=== PATIENT | male | born 2000 | race Caucasian/White ===

== ENCOUNTER → 2020-07-08 08:28 | Outpatient (BNVA) | payer MEDICAID, SELFPAY | PROVIDERS: PCP Electrodiagnostic Medicine; Referring Provider Electrodiagnostic Medicine; Visit Provider Nurse Practitioner Family | DX: R35.0 Frequency of micturition (principal) | CPT/HCPCS: 81001 ==

== ENCOUNTER → 2020-07-30 09:14 | Outpatient (BNVA) | payer MEDICAID, SELFPAY | PROVIDERS: PCP Electrodiagnostic Medicine; Visit Provider Urology | DX: R35.0 Frequency of micturition (principal); R39.15 Urgency of urination; N41.1 Chronic prostatitis | CPT/HCPCS: 81001 ==

== ENCOUNTER 2020-09-10 07:30 | Outpatient (CLI) | payer MEDICAID, SELFPAY ==
--- NOTE | 2020-09-10 07:15 | US_ITS ---
WS: [id number] RENAL ULTRASOUND URINARY BLADDER ULTRASOUND HISTORY: urinary frequency COMPARISON: None available. TECHNIQUE: 2-D and color Doppler imaging of the kidney submitted. Right kidney: 12.7 cm x 5.7 cm x 5.5 cm. Normal echogenicity with no hydronephrosis or mass. Left kidney: 12.7 cm x 4.3 cm x 5.4 cm. Normal echogenicity with no hydronephrosis or mass. Aorta: Normal. Urinary Bladder: Normal distention. No significant post void residual. Good emptying of the urinary bladder.
--- NOTE | 2020-09-10 08:00 | XR_ITS ---
WS: [id number] Exam: XR KUB [id number] Date/Time of Exam: 09/10/2020 8:00 AM Reason For Exam: URINARY FREQUENCY No bowel obstruction or free air. Visualized organ margins are intact. Nonspecific left pelvic calcif ication measuring about 4 mm. This could be a phlebolith however a urinary tract stone could have sim ilar appearance. Moderate amount of stool in right colon. Bony elements are intact. Visualized organ margins appear normal. XR/XR KUB [id number] IMPRESSION: 1. Nonspecific 4 mm left pelvic calcification noted. This could be a urinary tr act stone or phlebolith. No acute process identified.
--- NOTE | 2020-09-10 15:03 | US_ITS ---
WS: [id number] RENAL ULTRASOUND URINARY BLADDER ULTRASOUND HISTORY: urinary frequency COMPARISON: None available. TECHNIQUE: 2-D and color Doppler imaging of the kidney submitted. Right kidney: 12.7 cm x 5.7 cm x 5.5 cm. Normal echogenicity with no hydronephrosis or mass. Left kidney: 12.7 cm x 4.3 cm x 5.4 cm. Normal echogenicity with no hydronephrosis or mass. Aorta: Normal. Urinary Bladder: Normal distention. No significant post void residual. Good emptying of the urinary bladder. US/US renal BI with PV bladder IMPRESSION: Normal renal ultrasound. No post void residual.
== END 2020-09-10 07:31 | disposition home or self-care (01) ==
LOC: RAD 07:32
PROVIDERS: PCP Electrodiagnostic Medicine; Visit Provider Urology
DX: R35.0 Frequency of micturition (principal); N20.9 Urinary calculus, unspecified
CPT/HCPCS: 74018; 76770; 76857; 81003

== ENCOUNTER → 2020-11-13 08:18 | Outpatient (BNVA) | payer MEDICAID, SELFPAY | PROVIDERS: PCP Electrodiagnostic Medicine; Visit Provider Urology | DX: R35.0 Frequency of micturition (principal) | CPT/HCPCS: 81003 ==

== ENCOUNTER 2020-11-27 13:53 | Outpatient (CLI) | payer MEDICAID, SELFPAY ==
--- NOTE | 2020-11-27 13:15 | XR_ITS ---
WS: [id number] KUB, 11/27/2020 Clinical Data: URINARY FREQUENCY Comparison: KUB, 09/10/2020. Findings: No abnormal intraabdominal masses or calcifications are seen. There is no dilatated small bowel or ev idence of obstruction. The left true pelvic calcification again seen. There is fecal material throughout the ascending and t ransverse colon. XR/XR KUB [id number] Impression: No change in calcification in left true pelvis.
--- NOTE | 2020-11-27 13:30 | US_ITS ---
WS: [id number] RENAL ULTRASOUND URINARY BLADDER ULTRASOUND HISTORY: URINARY FREQUENCY COMPARISON: 09/10/2020 TECHNIQUE: 2-D and color Doppler imaging of the kidney submitted. Right kidney: 12.7 cm x 5.2 cm x 4.8 cm. Normal echogenicity with no hydronephrosis or mass. Left kidney: 13.2 cm x 4.8 cm x 4.9 cm. Normal echogenicity with no hydronephrosis or mass. Aorta: Normal. Urinary Bladder: [place] moderate distention of the bladder. Diffuse mild wall thickening is probably due to underdistention. Bladder volume is 61 mL. Postcontrast voiding there is no residual. US/US renal BI* [id number] IMPRESSION: Normal renal ultrasound. No post void residual.
== END 2020-11-27 13:54 | disposition home or self-care (01) ==
PROVIDERS: PCP Electrodiagnostic Medicine; Visit Provider Urology
DX: R35.0 Frequency of micturition (principal)
CPT/HCPCS: 74018; 76770; 81003

== ENCOUNTER → 2021-05-28 08:34 | Outpatient (BNVA) | payer MEDICAID, SELFPAY | PROVIDERS: PCP Electrodiagnostic Medicine; Visit Provider Urology | DX: R35.0 Frequency of micturition (principal); F84.0 Autistic disorder | CPT/HCPCS: 81003 ==

== ENCOUNTER → 2022-02-19 08:13 | Outpatient (BNVA) | payer MEDICAID, SELFPAY | PROVIDERS: PCP Electrodiagnostic Medicine; Visit Provider Urology | DX: R35.0 Frequency of micturition (principal) | CPT/HCPCS: 81003 ==

== ENCOUNTER → 2022-08-26 08:13 | Outpatient (BNVA) | payer MEDICAID, SELFPAY | PROVIDERS: PCP Electrodiagnostic Medicine; Visit Provider Nurse Practitioner Family | DX: R35.0 Frequency of micturition (principal); F84.0 Autistic disorder | CPT/HCPCS: 81003; 99213 ==

== ENCOUNTER 2023-10-11 09:28 | Emergency (ER) | payer MEDICAID, SELFPAY ==
[2023-10-11 09:36] VITALS: BP 137/81; PULSE 103; RESP 25; TEMP 36.5; O2SAT 100; BMI 33.5
--- NOTE | 2023-10-11 10:03 | ED_ITS ---
HPI - Abdominal Pain 2 General: Chief Complaint: Abdominal Pain Stated Complaint: abd pain, N/V, heacahce Time Seen by Provider: 10/11/23 09:35 Source: patient and family Mode of arrival: ambulatory Limitations: no limitations History of Present Illness: Patient is a 23-year-old autistic male here with his mother for concerns of abdominal pain and vomiting beginning around midnight last night. They have been around other people with who have been ill with similar symptoms. She states patient has not been able to keep anything down and was up all evening vomiting. He has not had any diarrhea. No fevers. MD elicited complaint: abdominal pain and other (vomiting) Pertinent past history: none Onset (ago): hour(s) Pain Consistency: intermittent Location: Diffuse Severity: mild Quality: cramping Radiation: none Migration to: no migration Exacerbating factors: eating Relieving factors: nothing Associated Symptoms: Reports nausea and vomiting; Denies change in bowel habits, chills, coffee ground emesis, diarrhea, dysuria, fever(s), heartburn and hematemesis Review of Systems 2 Const: Denies: fever(s), chills, body aches, fatigue or malaise Card: Denies: chest pain Resp: Denies: dyspnea GI: Reports: abdominal pain, nausea and vomiting; Denies: hematemesis, coffee ground emesis, dysphagia, heartburn, diarrhea or change in bowel habits : Denies: flank pain, difficulty urinating, dysuria, urinary frequency, urinary urgency or urinary hesitancy Musc: Denies: neck pain, back pain, extremity pain or joint pain Skin/Breast: Denies: rash Neuro: Denies: headache(s), numbness in extremities, weakness in extremities or sensory changes PFSH ED 2 PFSH: Medical History Autism Urinary frequency Family History Mother Diabetes Social History Smoking and tobacco/nicotine status: never used tobacco/nicotine Alcohol intake: never Substance/Drug Use: never Housing: House Marital status: Single Current occupational status: employed Physical Exam 2 Const: COMMON NORMALS: no acute distress, average body habitus, patient oriented x3, no limitations, healthy appearing, alert and well nourished Eye: COMMON NORMALS: no scleral icterus Resp: COMMON NORMALS: normal respiratory effort and clear to auscultation bilaterally AUSCULTATION: clear to auscultation bilaterally Cardio: COMMON NORMALS: regular rate and regular rhythm RATE: regular rate RHYTHM: regular rhythm GI: COMMON NORMALS: Normal to inspection, nondistended, normoactive bowel sounds present, Soft to palpation, non-tender, No hepatosplenomegaly present and no masses INSPECTION: Yes normal to inspection PALPATION: Yes Soft to palpation and Yes No hepatosplenomegaly present Extremity: GENERAL: Yes normal exam except as noted Neuro: COMMON NORMALS: patient oriented x3, moves all extremities, no focal motor deficits and no sensory deficits noted SENSORIUM/ORIENTATION: Yes alert Skin: COMMON NORMALS: no rashes or lesions noted GENERAL SKIN EXAM: no rashes or lesions noted Course 2 Vital Signs: Vital signs: Vital Signs Temperature 97.7 F 10/11/23 09:36 Pulse Rate 116 H 10/11/23 11:12 Respiratory Rate 18 10/11/23 11:12 Blood Pressure 169/99 10/11/23 11:12 Pulse Oximetry 100 10/11/23 11:12 Oxygen Delivery Me thod Room Air 10/11/23 11:12 MDM - Abdominal Pain Medical Decision Making Patient appears in no acute distress. He feels much better after Zofran. He was able to drink here without vomiting. Patient's labs overall are nonactionable. He has a minor white count most likely from vomiting all evening. Chemistry panel overall is fairly unremarkable. Glucose mildly elevated at 151. He has a normal gap and bicarb. UA is unremarkable. He was given a liter of fluids here. Abdomen is nonsurgical. Patient will be treated for a viral gastroenteritis. Return to ED precautions given. Medical Records I reviewed the patient's medical records. Lab Data I reviewed the patient's lab results. 10/11/23 10:24 10/11/23 10:24 Labs/Radiology: Laboratory Results WBC 13.83 10^3/uL (3.29-11.43) H 10/11/23 10:24 RBC 5.28 10^6/uL (3.85-5.65) 10/11/23 10:24 Hgb 16.00 g/dL (11.27-16.99) 10/11/23 10:24 Hct 45.9 % (37-53) 10/11/23 10:24 MCV 86.9 fl (82-101) 10/11/23 10:24 MCH 30.3 pg (27-33) 10/11/23 10:24 MCHC 34.9 g/dL (30-55) 10/11/23 10:24 RDW 11.9 % (12.1-15.1) L 10/11/23 10:24 Plt Count 263 10^3/cmm (157-399) 10/11/23 10:24 MPV 8.8 fL (7.4-10.4) 10/11/23 10:24 Neut % (Auto) 92.0 % 10/11/23 10:24 Lymph % (Auto) 2.8 % 10/11/23 10:24 Starr % (Auto) 4.6 % 10/11/23 10:24 Eos % (Auto) 0.0 % 10/11/23 10:24 Baso % (Auto) 0.3 % 10/11/23 10:24 Neut # (Auto) 12.72 10^3/uL (1.8-7.7) H 10/11/23 10:24 Lymph # (Auto) 0.4 10^3/uL (0.8-4.8) L 10/11/23 10:24 Starr # (Auto) 0.6 10^3/uL (0.2-0.9) 10/11/23 10:24 Eos # (Auto) 0.0 10^3/uL (0.0-0.8) 10/11/23 10:24 Baso # (Auto) 0.0 10^3/uL (0.0-0.1) 10/11/23 10:24 Nucleated RBC % (auto) 0 % 10/11/23 10:24 Nucleated RBCs # 0.0 /100WBC 10/11/23 10:24 Sodium 139 mmol/L (136-145) 10/11/23 10:24 Potassium 4.3 mmol/L (3.5-5.1) 10/11/23 10:24 Chloride 102 mmol/L (98-107) 10/11/23 10:24 Carbon Dioxide 24 mmol/L (22-29) 10/11/23 10:24 Anion Gap 17.3 (5-19) 10/11/23 10:24 BUN 15 mg/dL (6-20) 10/11/23 10:24 Creatinine 0.8 mg/dL (0.7-1.2) 10/11/23 10:24 GFR Calculation 118.8 mL/min (90-130) 10/11/23 10:24 Glucose 151 mg/dL (65-115) H 10/11/23 10:24 Calculated Osmolality 292 mOsm/kg (285-295) 10/11/23 10:24 Calcium 9.0 mg/dL (8.5-10.5) 10/11/23 10:24 Total Bilirubin 1.2 mg/dL (0.15-1.2) 10/11/23 10:24 AST 25 U/L (0-40) 10/11/23 10:24 ALT 60 U/L (0-41) H 10/11/23 10:24 Alkaline Phosphatase 57 U/L (40-130) 10/11/23 10:24 Total Protein 7.5 g/dL (6.6-8.7) 10/11/23 10:24 Albumin 4.6 g/dL (3.5-5.2) 10/11/23 10:24 Globulin 2.9 g/dL (1.3-4.6) 10/11/23 10:24 Lipase 14 U/L (13-60) 10/11/23 10:24 Urine Color Yellow (Yellow) 10/11/23 11:11 Urine Appearance Clear (CLEAR) 10/11/23 11:11 Urine pH 7 (5-7) 10/11/23 11:11 Ur Specific [place] 1.005 (1.005-1.030) 10/11/23 11:11 Urine Protein Neg (Negative) 10/11/23 11:11 Urine Glucose (UA) Norm (Normal) 10/11/23 11:11 Urine Ketones Negative (Negative) 10/11/23 11:11 Urine Blood Neg (Negative) 10/11/23 11:11 Urine Nitrate Negative (Negative) 10/11/23 11:11 Urine Bilirubin Neg (Negative) 10/11/23 11:11 Urine Urobilinogen Norm mg/dL (Negative) 10/11/23 11:11 Ur Leukocyte Esterase Negative (Negative) 10/11/23 11:11 No radiology studies performed this visit Discharge Plan Discharge Patient Disposition: Home Clinical Impression: Gastroenteritis Condition: Stable Prescriptions: New ondansetron 4 mg tablet,disintegrating 4 mg PO Q8H PRN (Reason: nausea and vomiting) Qty: 14 0RF No Action Complete Multivitamin Tablet 1 tab PO DAILY solifenacin 10 mg tablet See Rx Instructions .ROUTE .COMPLEX Qty: 90 3RF Dose Instruction: Take 1 tablet by mouth once daily Rx Instructions: Take 1 tablet by mouth once daily Discharge Orders: Discharge ED (Routine); Ordered 10/11/23 Ordered By: Kristie Pendleton Referrals: Tacos Armendariz DO [Primary Care Provider] - Patient Instructions: Gastroenteritis (DC), Acute Nausea and Vomiting (DC) Coding Level of Care Code ED [facility] [facility] for [facility]
[2023-10-11 10:30] LABS: Basophils % 0.3 %; Hematocrit 45.9 % (37-53); Lymphocytes # 0.4 10^3/uL (0.8-4.8); Lymphocytes % 2.8 %; Mean Corpuscular HGB Conc 34.9 g/dL (30-55); Mean Corpuscular Hemoglobin 30.3 pg (27-33); Mean Corpuscular Volume 86.9 fl (82-101); Mean Platelet Volume 8.8 fL (7.4-10.4); Monocytes # 0.6 10^3/uL (0.2-0.9); Monocytes % 4.6 %; Neutrophils # 12.72 10^3/uL (1.8-7.7); Nucleated Red Blood Cells % 0 %; Platelet Count 263 10^3/cmm (157-399); Red Blood Count 5.28 10^6/uL (3.85-5.65); Red Cell Distribution Width 11.9 % (12.1-15.1); White Blood Count 13.83 10^3/uL (3.29-11.43)
[2023-10-11] MEDS: ondansetron 2 mg/ML SDV 2 mL 4 MG IVP (10:31)
[2023-10-11] MEDS: sodium chloride 0.9% 1,000 ML 999 ML IV (10:31)
[2023-10-11 10:52] LABS: Alanine Aminotransferase 60 U/L (0-41); Albumin Level 4.6 g/dL (3.5-5.2); Alkaline Phosphatase 57 U/L (40-130); Anion Gap 17.3 (5-19); Aspartate Amino Transferase 25 U/L (0-40); Blood Urea Nitrogen 15 mg/dL (6-20); Carbon Dioxide 24 mmol/L (22-29); Chloride 102 mmol/L (98-107); Creatinine Clr Calc Pharmacy 168.3732; Globulin 2.9 g/dL (1.3-4.6); Glomerular Filtration Rate 118.8 mL/min (90-130); Glucose 151 mg/dL (65-115); Lipase 14 U/L (13-60); Osmolality Calculated 292 mOsm/kg (285-295); Potassium 4.3 mmol/L (3.5-5.1); Sodium 139 mmol/L (136-145); Total Bilirubin 1.2 mg/dL (0.15-1.2); Total Protein 7.5 g/dL (6.6-8.7)
[2023-10-11 11:12] VITALS: BP 169/99; PULSE 116; RESP 18; O2SAT 100
[2023-10-11 11:26] LABS: Add Urine Microscopic? NO; Charge for UA Resulting for Rev
[2023-10-11 11:40] LABS: Bilirubin Urine Neg (Negative); Blood Urine Neg (Negative); Glucose Urine UA Norm (Normal); Ketones Urine Negative (Negative); Leukocyte Esterase Urine Negative (Negative); Nitrate Urine Negative (Negative); Protein Urine Neg (Negative); Specific Gravity, Urine 1.005 (1.005-1.030); Urine Appearance Clear (CLEAR); Urine Color Yellow (Yellow); Urobilinogen Urine Norm (Negative); pH Urine 7 (5-7)
== END 2023-10-11 11:53 | disposition home or self-care (01) ==
PROVIDERS: Emergency Provider Physician Assistant; PCP Electrodiagnostic Medicine
DX: K52.9 Noninfective gastroenteritis and colitis, unspecified (principal)
CPT/HCPCS: 80053; 81003; 83690; 85025; 96374; 99284; J2405; J7030

== ENCOUNTER → 2024-03-13 07:49 | Outpatient (BNVA) | payer MEDICAID, SELFPAY | PROVIDERS: PCP Family Medicine Adult Medicine; Visit Provider Surgery | DX: K21.9 Gastro-esophageal reflux disease without esophagitis (principal); R10.13 Epigastric pain; R11.14 Bilious vomiting; R19.7 Diarrhea, unspecified | CPT/HCPCS: 36415; 86003; 86008; 99204 ==

== ENCOUNTER → 2024-05-04 08:11 | Outpatient (BNVA) | payer MEDICAID, SELFPAY | PROVIDERS: PCP Family Medicine Adult Medicine; Visit Provider Surgery | DX: R10.13 Epigastric pain (principal); Z91.018 Allergy to other foods; T78.1XXA Other adverse food reactions, not elsewhere classified, initial encounter; R11.14 Bilious vomiting; R19.7 Diarrhea, unspecified; X58.XXXA Exposure to other specified factors, initial encounter | CPT/HCPCS: 99214 ==

== ENCOUNTER 2024-05-25 08:00 | Outpatient (CLI) | payer MEDICAID, SELFPAY ==
--- NOTE | 2024-05-25 08:00 | US_ITS ---
WS: [id number] ULTRASOUND ABDOMEN LIMITED CLINICAL INFORMATION: abd pain COMPARISON: None. FINDINGS: Liver Size: Enlarged Craniocaudal length: 17.7 cm. Echogenicity: Coarse Surface nodularity: None. Mass (size and location): None. Bile ducts Intrahepatic ducts: Normal. Common bile duct diameter: 0.4 cm. Gallbladder Normal. Gallstones: None. Gallbladder sludge: None. Gallbladder wall thickening: None. Pericholecystic fluid: None. Sonographic Ha sign: Absent. Pancreas Normal as visualized. Right kidney: Normal. Hydronephrosis: None. Size: 10.5 cm x 5.9 cm x 5.1 cm. Abdominal aorta and IVC Visualized portions are normal. Ascites: None. US/US gall bladder [id number] IMPRESSION: 1. Mild hepatomegaly with coarse echogenicity compatible with fatty infiltrati on. 2. Normal gallbladder. 3. No hydronephrosis in the RIGHT kidney.
== END 2024-05-25 08:02 | disposition home or self-care (01) ==
PROVIDERS: PCP Family Medicine Adult Medicine; Visit Provider Surgery
DX: R10.13 Epigastric pain (principal)
CPT/HCPCS: 76705

== ENCOUNTER → 2025-06-05 08:51 | Outpatient (BNVA) | payer MEDICAID, SELFPAY | PROVIDERS: PCP Family Medicine Adult Medicine; Visit Provider Family Medicine | DX: R73.09 Other abnormal glucose (principal) | CPT/HCPCS: 80053; 80061; 83036; 84439; 84443; 85025 ==

== ENCOUNTER 2025-09-03 08:04 | Outpatient (CLI) | payer MEDICAID, SELFPAY ==
--- NOTE | 2025-09-03 08:00 | NM_ITS ---
WS: [id number] NUCLEAR MEDICINE HIDA SCAN CLINICAL INFORMATION: Abdominal pain TECHNIQUE: Following intravenous administration of 7.5 mCi of technetium 99m mebrofenin, images of the abdomen were obtained over the course of 60 minutes. Next, gallbladder ejection fraction was determined by obtaining preprandial and one-hour postprandial images of the gallbladder following oral ingestion of Ensure. FINDINGS: Normal hepatic uptake at 5 minutes. Normal hepatic excretion. Hepatomegaly. Gallbladder is visualized by 10 minutes. No evidence of acute cholecystitis. Normal common bile duct and small bowel activity. Gallbladder ejection fraction 55% within normal limits. No evidence of chronic cholecystitis. NM/NM hepatobiliary w phar* [id number] IMPRESSION: 1. No evidence of acute or chronic cholecystitis. 2. Gallbladder ejection fraction 55% within normal limits
== END 2025-09-03 08:05 | disposition home or self-care (01) ==
LOC: RAD 08:06
PROVIDERS: PCP Family Medicine; Visit Provider Registered Nurse Neonatal Intensive Care
DX: R10.9 Unspecified abdominal pain (principal); K82.8 Other specified diseases of gallbladder
CPT/HCPCS: 78227; A9537